=== PATIENT | female | born 1975 ===

== ENCOUNTER 2017-07-21 07:48 | Emergency (ER) | payer OTHER ==
[2017-07-21 07:54] VITALS: BP 121/80; PULSE 75; RESP 20; TEMP 98.1; BMI 26.4
[2017-07-21 08:00] VITALS: O2SAT 98
[2017-07-21] MEDS ORDERED: Sodium Chloride 0.9% 1,000 ML IV STA (08:26)
[2017-07-21] MEDS ORDERED: DiphenhydrAMINE 50 mg/ml Inj IVP STA (08:26)
--- NOTE | 2017-07-21 08:34 | ED PDOC ---
HPI: Headache Time Seen by Provider: 07/21/17 07:57 Chief Complaint (Nursing): Abdominal Pain Chief Complaint (Provider): Headache History Per: Patient History/Exam Limitations: no limitations Onset/Duration Of Symptoms: Days (x 3) Current Symptoms Are (Timing): Still Present Additional Complaint(s): Niurka is a 42 y/o female with a past medical history of migraines, who presents to the ED complaining of a headache ongoing for 3 days associated with nausea, vomiting, diarrhea, and abdominal pain which started secondary to vomiting. Patient denies fever or neck stiffness. She states that the headache is typical for her, and that she ran out of sumatriptan. PMD: None Provided Past Medical History Reviewed: Historical Data, Nursing Documentation, Vital Signs Vital Signs: Last Vital Signs Temp 98.1 F 07/21/17 07:52 Pulse 75 07/21/17 07:52 Resp 20 07/21/17 07:52 BP 121/80 07/21/17 07:52 Pulse Ox 98 07/21/17 07:57 - Medical History PMH: Migraine - Family History Family History: States: Unknown Family Hx - Home Medications Home Medications: Ambulatory Orders Medication Instructions Recorded Naproxen [Naprosyn] 500 mg PO BID PRN #15 tablet 07/21/17 Ondansetron [Zofran Odt] 4 mg PO Q8H PRN #15 odt 07/21/17 - Allergies Allergies/Adverse Reactions: Allergies Allergy/AdvReac Type Severity Reaction Status Date / Time fruits Allergy RASH Uncoded 07/21/17 07:57 Review of Systems ROS Statement: Except As Marked, All Systems Reviewed And Found Negative Constitutional: Negative for: Fever Gastrointestinal: Positive for: Nausea, Vomiting, Abdominal Pain, Diarrhea Musculoskeletal: Negative for: Neck Pain Neurological: Positive for: Headache Physical Exam - Reviewed Nursing Documentation Reviewed: Yes Vital Signs Reviewed: Yes - Physical Exam Appears: Positive for: Non-toxic, In Acute Distress (Mild) Head Exam: Positive for: ATRAUMATIC, NORMAL INSPECTION, NORMOCEPHALIC Skin: Positive for: Normal Color, Warm, Dry Eye Exam: Positive for: Normal appearance, EOMI, PERRL. Negative for: Nystagmus ENT: Positive for: Normal ENT Inspection Neck: Positive for: Normal, Painless ROM, Supple Cardiovascular/Chest: Positive for: Regular Rate, Rhythm Respiratory: Positive for: CNT, Normal Breath Sounds Gastrointestinal/Abdominal: Positive for: Bowel Sounds, Soft, Tenderness (Mild) . Negative for: Guarding, Rebound Neurologic/Psych: Positive for: Alert, Oriented - Laboratory Results Result Diagrams: 07/21/17 09:00 07/21/17 09:00 - ECG O2 Sat by Pulse Oximetry: 98 (RA) Pulse Ox Interpretation: Normal Medical Decision Making Medical Decision Making: Initial Impression: headache Initial Plan --CMP --Urine --Benadryl --NaCl 0.9% IV --Phenergan ~ Scribe Attestation: Documented by Christ Weller, acting as a scribe for Dr. Jacki Rose. Provider Scribe Attestation: All medical record entries made by the Scribe were at my direction and personally dictated by me. I have reviewed the chart and agree that the record accurately reflects my personal performance of the history, physical exam, medical decision making, and the department course for this patient. I have also personally directed, reviewed, and agree with the discharge instructions and disposition. Disposition - Clinical Impression Clinical Impression: Migraine - Disposition Disposition: Routine/Home Disposition Time: 10:37 Condition: STABLE Additional Instructions: FOLLOW-UP WITH PMD WITHIN 2 DAYS FOR REEVALUATION. Prescriptions: Naproxen [Naprosyn] 500 mg PO BID PRN #15 tablet PRN Reason: Pain, Moderate (4-7) Ondansetron [Zofran Odt] 4 mg PO Q8H PRN #15 odt PRN Reason: Nausea/Vomiting Instructions: Migraine Headache (ED) Forms: [employer] [facility] ([place]), [facility] School/Work Excuse
[2017-07-21] MEDS ORDERED: DiphenhydrAMINE 50 mg/ml Inj ONE (08:43)
[2017-07-21 09:10] LABS: BASO # 0.1 K/uL (0.0-0.2); BASO % 0.5 % (0.0-2.0); EOS # 0.1 K/uL (0.0-0.7); EOS % 1.4 % (0.0-4.0); LYMPH # 1.7 K/uL (1.0-4.3); LYMPH % 16.8 % (20.0-40.0); MEAN CELL VOLUME 86.2 fl (81.0-99.0); MEAN CORPUSCULAR HEMOGLOBIN 27.5 pg (27.0-31.0); MEAN CORPUSCULAR HGB CONC 31.9 g/dL (33.0-37.0); MEAN PLATELET VOLUME 9.4 fl (7.2-11.7); MONO # 0.6 K/uL (0.0-0.8); MONO % 5.6 % (0.0-10.0); NEUT # 7.4 K/uL (1.8-7.0); NEUT % 75.7 % (50.0-75.0); RED CELL DISTRIBUTION WIDTH 13.7 % (11.5-14.5); WHITE BLOOD COUNT 9.8 K/uL (4.8-10.8)
[2017-07-21 09:18] LABS: ALB/GLOB RATIO 1.1 (1.0-2.1); ALKALINE PHOSPHATASE 64 U/L (38-126); ALT/SGPT 25 U/L (9-52); AST/SGOT 30 U/L (14-36); BILIRUBIN,TOTAL 0.8 mg/dl (0.2-1.3); BLOOD UREA NITROGEN 7 mg/dl (7-17); CALCIUM 9.2 mg/dL (8.4-10.2); CARBON DIOXIDE 21 mmol/L (22-30); CHLORIDE 106 mmol/L (98-107); GFR AFRICAN-AMERICAN > 60; GLUCOSE,RANDOM 86 mg/dL (65-105); POTASSIUM 4.2 MMOL/L (3.6-5.0); SODIUM 141 mmol/l (132-148); TOTAL PROTEIN 7.6 G/DL (6.3-8.2)
== END 2017-07-21 10:49 | disposition home or self-care (01) ==
LOC: H.ER 07:48
DX: G43.909 Migraine, unspecified, not intractable, without status migrainosus (principal); R11.2 Nausea with vomiting, unspecified
CPT/HCPCS: 80053; 81025; 85025; 96361; 96374; 96375; 99284; J1200; J2550; J7040